=== PATIENT | female | born 1990 | race Caucasian/White ===

== ENCOUNTER 2023-01-13 09:02 | Outpatient (CLI) | payer OTHER, SELFPAY | END 2023-01-13 09:03 | disposition home or self-care (01) | LOC: NFLDREF 09:03 | PROVIDERS: Visit Provider Registered Nurse | DX: Z01.419 Encounter for gynecological examination (general) (routine) without abnormal findings (principal); Z13.6 Encounter for screening for cardiovascular disorders | CPT/HCPCS: 80061 ==

== ENCOUNTER 2023-05-07 13:37 | Outpatient (CLI) | payer OTHER, SELFPAY | END 2023-05-07 13:38 | disposition home or self-care (01) | PROVIDERS: Visit Provider Family Medicine | DX: R10.9 Unspecified abdominal pain (principal) | CPT/HCPCS: 80076; 83690; 86140 ==

== ENCOUNTER 2023-05-14 07:04 | Outpatient (CLI) | payer OTHER, SELFPAY ==
--- NOTE | 2023-05-14 07:15 | CRLHL7_ITS ---
For Patients: As a result of the Century Cures Act, medical imaging exams and procedure reports are released immediately into your electronic medical record. You may view this report before your referring provider. If you have questions, please contact your health care provider. INDICATION: ABD PAIN, HX CHOLECYSTECTOMY COMPARISON: MRI 03/05/2018 TECHNIQUE: Real time shelley scale imaging and color Doppler analysis was performed of the right upper quadrant. FINDINGS: The patient`s liver is of normal size and has uniform echogenicity. There is a normal appearance of the hepatic IVC and proximal abdominal aorta. There is no evidence of ascites. The gallbladder is absent. The common bile duct is of normal size and measures 6 mm in diameter at the level of the terese hepatis. Hypoechoic structure associated with the pancreatic head measuring 3.3 cm. There is no evidence of a stone or hydronephrosis within the right kidney. The right kidney measures 11.2 cm in length. IMPRESSION: The pancreas is similar to the prior examination. Accessory pancreatic tissue is unchanged. There is no suspicious pancreatic lesion. Absent gallbladder. No biliary obstruction. Overall, the examination is normal. Dictated by Graham Mendoza MD @ 05/14/2023 11:34:27 AM (Electronically Signed)
== END 2023-05-14 07:05 | disposition home or self-care (01) ==
PROVIDERS: Visit Provider Family Medicine
DX: R10.9 Unspecified abdominal pain (principal)
CPT/HCPCS: 76705

== ENCOUNTER 2023-12-14 15:50 | Outpatient (CLI) | payer OTHER, SELFPAY ==
[2023-12-14 23:05] LABS: Chlamydia DNA Amplified* NOT DETECTED (No Detected); GC DNA Amplified* NOT DETECTED (No Detected)
== END 2023-12-14 15:51 | disposition home or self-care (01) ==
PROVIDERS: Visit Provider Registered Nurse
DX: Z34.91 Encounter for supervision of normal pregnancy, unspecified, first trimester (principal); Z3A.09 9 weeks gestation of pregnancy
CPT/HCPCS: 76817; 82565; 82570; 84156; 84450; 84460; 84520; 86592; 86703; 86704; 86706; 86762; 86787; 86803; 86850; 86900; 86901; 87086; 87340; 87491; 87591

== ENCOUNTER 2023-12-24 10:29 | Outpatient (CLI) | payer OTHER, SELFPAY | END 2023-12-24 10:30 | disposition home or self-care (01) | LOC: NFLDREF 12-27 15:39 | PROVIDERS: Visit Provider Registered Nurse | DX: Z34.90 Encounter for supervision of normal pregnancy, unspecified, unspecified trimester (principal) | CPT/HCPCS: 82570; 84156 ==

== ENCOUNTER 2024-01-03 08:37 | Outpatient (CLI) | payer OTHER, SELFPAY | END 2024-01-03 08:38 | disposition home or self-care (01) | LOC: NFLDREF 01-04 11:45 | PROVIDERS: Visit Provider Obstetrics & Gynecology | DX: Z87.59 Personal history of other complications of pregnancy, childbirth and the puerperium (principal); O09.521 Supervision of elderly multigravida, first trimester | CPT/HCPCS: 84450; 84460 ==

== ENCOUNTER 2024-02-16 07:52 | Outpatient (CLI) | payer OTHER, SELFPAY | END 2024-02-16 07:53 | disposition home or self-care (01) | LOC: US 07:52 | PROVIDERS: Visit Provider Obstetrics & Gynecology | DX: O09.522 Supervision of elderly multigravida, second trimester (principal); Z3A.18 18 weeks gestation of pregnancy | CPT/HCPCS: 76811 ==

== ENCOUNTER 2024-04-19 07:10 | Outpatient (CLI) | payer OTHER, SELFPAY ==
--- NOTE | 2024-04-19 07:15 | CRLHL7_ITS ---
For Patients: As a result of the Cures Act, medical imaging exams and procedure reports are released immediately into your electronic medical record. You may view this report before your referring provider. If you have questions, please contact your health care provider. HISTORY: Gestational diabetes. growth. COMPARISON: Report of the Ob ultrasound from 12/14/2023 TECHNIQUE: Ultrasound examination of the is performed with transabdominal technique. FINDINGS: A single intrauterine gestation is seen in breech presentation with regular cardiac activity at 161 beats per minute. The placenta is posterior and is free of the cervical os. The placental grade is 1 and the amniotic fluid volume is normal. Single deepest vertical pocket: Normal at 3.5 cm. BPD: 6.4 cm 26 weeks 0 days, less than the 3rd percentile HC: 24.5 cm 26 weeks 4 days, less than the 3rd percentile AC: 23.2 cm 27 weeks 4 days, 34th percentile FL: 5.3 cm 28 weeks 0 days, 39th percentile The estimated age by ultrasound is 27 weeks 0 days, with an estimated date of delivery of 07/19/2024. This represents a slight decrease in rate of growth compared with the clinical age of 27 weeks 6 days and the previous ultrasound. The estimated date of delivery has been extended by 7 days compared to the previous ultrasound. The ultrasound ratios are normal. The estimated weight of 1100 grams is at the 26th percentile based on the clinical dates. IMPRESSION: 1. Single intrauterine gestation in breech presentation with regular cardiac activity. 2. Estimated gestational age is 27 weeks 0 days. 3. Slight decrease in rate of growth compared with the clinical age of 27 weeks 6 days and the previous ultrasound. The estimated date of delivery has been extended by 7 days compared to the previous ultrasound. 4. Estimated weight of 1100 grams is at the 26th percentile based on the clinical dates. 5. Head measurements less than the 3rd percentile. Dictated by Julio Cesar Arroyo MD @ 04/19/2024 9:45:06 AM (Electronically Signed)
== END 2024-04-19 07:11 | disposition home or self-care (01) ==
LOC: US 07:10
PROVIDERS: Visit Provider Obstetrics & Gynecology
DX: O24.419 Gestational diabetes mellitus in pregnancy, unspecified control (principal); Z3A.27 27 weeks gestation of pregnancy
CPT/HCPCS: 76816

== ENCOUNTER 2024-04-19 07:53 | Outpatient (CLI) | payer OTHER, SELFPAY | END 2024-04-19 07:54 | disposition home or self-care (01) | LOC: NFLDREF 04-22 19:58 | PROVIDERS: Visit Provider Obstetrics & Gynecology | DX: O24.419 Gestational diabetes mellitus in pregnancy, unspecified control (principal); Z3A.27 27 weeks gestation of pregnancy | CPT/HCPCS: 86592 ==

== ENCOUNTER 2024-05-17 07:17 | Outpatient (CLI) | payer OTHER, SELFPAY ==
--- NOTE | 2024-05-17 07:15 | CRLHL7_ITS ---
For Patients: As a result of the Century Cures Act, medical imaging exams and procedure reports are released immediately into your electronic medical record. You may view this report before your referring provider. If you have questions, please contact your health care provider. INDICATION: GDM COMPARISON: 04/19/2024 TECHNIQUE: Real time shelley scale imaging of the fetus was performed. FINDINGS/IMPRESSION: Sonographic imaging demonstrates a single living intrauterine gestation. Fetus demonstrates a regular cardiac rate of 154 beats per minute. Fetus has a vertex position. The placenta lies posteriorly. Amniotic fluid volume appears normal and there is a single deepest vertical pocket: 2.7 cm. The estimated weight is 1705gm which lies at the 19th %. On the prior OB ultrasound exam dated 04/19/2024 the estimated weight was at the 26th%. BPD less than 3rd percentile. HC is 4th percentile. AC 32nd percentile. FL 23rd percentile. The HC/AC ratio measures 1.03 range (0.96-1.18). Sonographic gestational age 30 weeks 5 days and sonographic due date 07/21/2024. Sonographic age is 8 days behind the clinical age. Dictated by Graham Mendoza MD @ 05/17/2024 12:15:15 PM (Electronically Signed)
== END 2024-05-17 07:18 | disposition home or self-care (01) ==
LOC: US 07:18
PROVIDERS: Visit Provider Obstetrics & Gynecology
DX: O24.419 Gestational diabetes mellitus in pregnancy, unspecified control (principal)
CPT/HCPCS: 76816

== ENCOUNTER 2024-06-14 07:18 | Outpatient (CLI) | payer OTHER, SELFPAY ==
--- NOTE | 2024-06-14 07:15 | CRLHL7_ITS ---
For Patients: As a result of the Century Cures Act, medical imaging exams and procedure reports are released immediately into your electronic medical record. You may view this report before your referring provider. If you have questions, please contact your health care provider. INDICATION: Third trimester scan, evaluate growth. COMPARISON: 05/17/2024 TECHNIQUE: Real time shelley scale imaging of the fetus was performed. FINDINGS/IMPRESSION: Sonographic imaging demonstrates a single living intrauterine gestation. Fetus demonstrates a regular cardiac rate of 148 beats per minute. Fetus has a vertex position. The placenta lies right posterior. Amniotic fluid volume appears normal and there is a single deepest vertical pocket: 3.9 cm. The estimated weight is 2516gm which lies at the 23rd %. On the prior OB ultrasound exam dated 05/17/2024 the estimated weight was at the 19th%. BPD less than 3rd percentile. HC 5th percentile. AC is 33rd percentile. FL 30th percentile. The HC/AC ratio measures 1.00 range (0.94-1.11). Sonographic gestational age 34 weeks 3 days and a sonographic due date of 07/23/2024. Sonographic age 10 days behind the clinical age. Dictated by Graham Mendoza MD @ 06/14/2024 1:21:30 PM (Electronically Signed)
== END 2024-06-14 07:19 | disposition home or self-care (01) ==
LOC: US 07:20
PROVIDERS: Visit Provider Obstetrics & Gynecology
DX: O24.419 Gestational diabetes mellitus in pregnancy, unspecified control (principal); Z3A.36 36 weeks gestation of pregnancy; Z23 Encounter for immunization
CPT/HCPCS: 76816; 87081; 87653

== ENCOUNTER 2024-07-06 06:34 | Inpatient (IN) | payer OTHER, SELFPAY ==
[2024-07-06] VITALS (25 sets, daily range): BP systolic 111–135; BP diastolic 64–80; PULSE 60–91; RESP 14–16; TEMP 36.6–36.7; O2SAT 71–100; BMI 27.3
[2024-07-06 07:57] LABS: Basophils Absolute Auto 0.02 K/uL (0.00-0.30); Basophils Percent Auto 0.4 % (0.0-3.0); Eosinophils Absolute Auto 0.07 K/uL (0.00-0.50); Eosinophils Percent Auto 1.3 % (0.0-7.0); Hematocrit 36.4 % (33.0-51.0); Hemoglobin* 12.1 gm/dL (12.0-16.0); Immature Granulocytes Abs Auto 0.02 K/uL (0.00-0.30); Immature Granulocytes Pct Auto 0.4 %; Lymphocytes Percent Auto 17.8 % (20-44); Mean Corpuscular HGB Conc 33 gm/dL (32-36); Mean Corpuscular Hemoglobin 30 pg (26-34); Mean Corpuscular Volume 90 fL (80-100); Neutrophils Absolute Auto 3.79 K/uL (1.7-7.0); Neutrophils Percent Auto 71.1 % (42.0-72.0); Platelet Count* 146 K/uL (140-440); Red Blood Count 4.03 m/uL (4.00-5.20); White Blood Count* 5.33 K/uL (4.50-11.00)
[2024-07-06 07:59] LABS: Slide Review Reflex No
[2024-07-06] MEDS: LACTATED RINGERS 1000 ML 1,000 ML 124 ML IV (08:03)
[2024-07-06] MEDS: OXYTOCIN 30 unit/500 ML in NS 30 UNIT/500 ML BAG IVPB (08:04)
--- NOTE | 2024-07-06 08:14 | W.PM.LDBA ---
Subjective History of Present Illness Date Seen: 07/06/24 Narrative: Patient is being admitted to Labor and Delivery for IOL. She is a 33 year old at 39 0/7 weeks gestation. Her full history and physical was dictated by Dr. Langley on 06/23/24. Please see this for details. Specific Issues/Plans G 4 P 2011 Spouse: Santiago. Daughters: Christiano Mathews, Jacinta Strniger. Baby: Girl! Jeri Mao H&P by [facility] on 06/23/2024 # AMA Genetic screening: Normal MaterniT-21 test. Level 2 US: 02/16/2024, no anomalies. Recommendations: Growth ultrasounds q4 weeks starting at 28 weeks gestation secondary to GDM (see below). Growth US w head measurements less than 3rd percentile and patient desired FU with MFM; results normal as summarized below. # history of preeclampsia with 1st . Baseline preeclampsia labs: BUN, Creatinine normal. AST slightly elevated at 38*. Repeated on 01/03/24: 23 ALT normal at 24. P/C 0.07 24 hour urine: Total protein: 104, P/C 0.09 Recommend daily baby aspirin starting at 12 weeks. # GDMA1 in this and her previous 2. Hemoglobin A1c: 4.9% Recommend early Glucola testin weeks: 178. Prefers to check BS QID than to do 3-h GTT. 02/15: MFM visit. recommend q4 week growth starting at 28 weeks: ultrasounds ordered on 02/29/24. # youngest child with autism and developmental delay. Reviewed limitation NIPT test. She is aware that this does not evaluate for autism. Did [id number]: no increased risk for aneuploidy, Female. # precipitous . Patient states she arrived to the hospital 20 minutes before delivery of her last child. Prefers elective IOL at 39 weeks # Indeterminate Hep B surface antibody. Negative Hep B antigen. No active Hep B infection. Uncertain immunity. If high risk for Hep B, can consider vaccination during . # varicella nonimmune. Recommend vaccination. # Umbilical hernia Imagin05/17/2024: Vertex, single deepest pocket of amniotic fluid 2.7 cm, BPD: Less than the 3rd percentile, HC: 3.5 percentile, AC: 32 percentile, FL: 23rd percentile. EFW: 1705 g, 19th percentile. 05/26/2024: MFM level 2: EFW 16%, AC 18%, normal visualized anatomy. HC is not in a range concerning for microcephaly and the intracranial anatomy appears within normal limits. 06/14/24: cephalic, SDP 3.9, EFW 22.6%, AC 32.7%, BPD <3%, HC 4.6%, FL 29.7%. Immunizations: Covid: Completed, not up-to-date with booster. Completing w/ her family Tdap: 05/29/2024 RSV: 06/14/24 Flu: next visit - Completing with her family OB - Problem Based A/P Additional Plan (1) Gestational diabetes mellitus: Status: Acute Plan: normal sugar at admit . Check postprandially until active labor Delivery/Labor/Induction Plan Induction method: per pitocin protocol OB Exam Physical Exam Narrative: Physical exam: General: No acute distress Psych: Alert and oriented x3, full affect HEENT: Normocephalic, atraumatic Neck: No cervical adenopathy, no thyromegaly Heart: Regular rate and rhythm, no murmur rub or gallop Lungs: Clear to auscultation bilaterally Abdomen: Soft, nontender, gravid, cephalic lie Skin: No lesions or rashes Lower extremities: No edema or erythema Pelvic exam: 2 cm/70 %/-1/soft consistency/mid position on 06/30 tracing: Baseline 140 / accelerations present / no decelerations / moderate variability.
--- NOTE | 2024-07-06 10:43 | PM.OBPNL ---
Subjective Date Seen: 07/06/24 Narrative: Poonam is a 33 yo woman at 39 0/7 weeks' gestation here for IOL for history of rapid labors in the setting of GDMA1. She is on Pitocin for augmentation of labor. She is feeling some contractions. Objective Exam: Gen - NAD Sterile vaginal exam - 3 80 / 0 / posterior / soft AROM for clear fluid Vital Signs: Last Vital Signs Temp 97.9 F 07/06/24 09:10 Pulse 70 07/06/24 10:00 Resp 16 07/06/24 09:10 BP 114/64 07/06/24 10:00 Pulse Ox 99 07/06/24 09:10 Comments: tracing: Baseline 140 / accelerations present / no deceleration / moderate variability. Contrations Q3-4 minutes Assessment Assessment: early labor Amniotic Membrane Status: AROM Status: Category l Tracing Comments: Category I GBS negative Labor Progress: Favorable cervix, early labor Maternal Status: Reassuring. Last blood sugar normal Plan Plan: Continue Pitocin augmentation.
[2024-07-06] MEDS: LIDOCAINE 2% (PF) 5 ML VIAL EPIDURAL (11:48)
[2024-07-06] MEDS: LIDOCAINE 1 % PF 30 ML INJECTION (12:01)
--- NOTE | 2024-07-06 12:03 | PM.ANBPRC ---
[facility] Medical History (Updated 07/06/24 @ 08:20 by Adelaide Hawk MD) History of gestational diabetes ?Z86.32 - Personal history of gestational diabetes (ICD-10) Hypercholesteremia ?E78.00 - Pure hypercholesterolemia, unspecified (ICD-10) Precipitate labor, with delivery ?O62.3 - Precipitate labor (ICD-10) Normal spontaneous vaginal delivery ?O80 - Encounter for full-term uncomplicated delivery (ICD-10) Pre-eclampsia affecting childbirth ?O14.94 - Unspecified pre-eclampsia, complicating childbirth (ICD-10) Meibomianitis ?H00.029 - Hordeolum internum unspecified eye, unspecified eyelid (ICD-10) History of migraine with aura ?Z86.69 - Personal history of other diseases of the nervous system and sense organs (ICD-10) History of concussion ?Z87.820 - Personal history of traumatic brain injury (ICD-10) Calculus of gallbladder with biliary obstruction but without cholecystitis (03/04/18) ?K80.21 - Calculus of gallbladder without cholecystitis with obstruction (ICD-10) Surgical History Status post laparoscopic cholecystectomy (~03/2018) ?Z90.49 - Acquired absence of other specified parts of digestive tract (ICD-10) Family History Paternal Grandfather Alzheimers disease Aunt Breast cancer Pancreatic cancer Diabetes FH: mental illness Family/Other Hypercholesterolemia Skin cancer Stroke Diabetes Breast cancer Father Diabetes Skin cancer Mother Hypercholesterolemia Stroke High blood pressure High cholesterol Paternal Grandmother Breast cancer Grandfather Bleeding disorder Other Heart disease Social History Narrative: nonsmoker What is your current living situation?: I presently have a place to live Problems where you live: no known problems In the past 12 months, utilities in danger of being shut off: no In past 12 months, lack of transportation kept you from medical appts, meetings, work, or getting things needed for daily living: no In the past 12 mos, have been you worried that your food would run out before you had money to buy more?: never true In the past 12 mos, the food you bought just didn't last and you didn't have money to buy more?: never true Smoking Status: Never smoker How often does anyone, including family, friends and others, physically hurt you: never How often does anyone, including family, friends and others, insult or talk down to you: never How often does anyone, including family, friends and others, threaten you with harm: never How often does anyone, including family, friends and others, scream or curse at you: never Meds Home Medications and Allergies Home Medications ?Medication ?Instructions ?Recorded ?Confirmed ?Type docosahexaenoic acid 200 mg mg PO 01/13/23 06/30/24 History capsule ( DHA) aspirin 81 mg capsule 81 mg PO QDAY 02/01/24 07/06/24 History Allergies Allergy/AdvReac Type Severity Reaction Status Date / Time No Known Drug Allergies Allergy Verified 07/06/24 06:52 Results Labs Labs: Laboratory Results - last 24 hr 07/06/24 07:45 WBC 5.33 RBC 4.03 Hgb 12.1 Hct 36.4 MCV 90 MCH 30 MCHC 33 RDW Coeff of Samy 13.0 Plt Count 146 Neut % (Auto) 71.1 Lymph % (Auto) 17.8 L [place] % (Auto) 9.0 Eos % (Auto) 1.3 Baso % (Auto) 0.4 Neut # (Auto) 3.79 Lymph # (Auto) 0.90 [place] # (Auto) 0.50 Eos # (Auto) 0.07 Baso # (Auto) 0.02 Abs Immat Gran (auto) 0.02 Imm/Tot Granulo (auto) 0.4 Blood Type A Positive Antibody Screen NEGATIVE Vital Signs Vital Signs: Last Vital Signs Temp 97.9 F 07/06/24 09:10 Pulse 68 07/06/24 11:59 Resp 16 07/06/24 09:10 BP 135/65 07/06/24 11:59 Pulse Ox 100 07/06/24 11:43 Weight: 83.915 kg Height: 175.26 cm Anesthesia Procedures Epidural Insertion Patient Location: OB Start Time: 11:20 Stop Time: 12:20 Start Date: 07/06/24 Stop Date: 07/06/24 Reason for Block: procedure for pain Patient Position: sitting Performed By: Aida Dominguez Preanesthetic Checklist: IV checked, risks and benefits discussed, monitors and equipment checked, pre-op evaluation, timeout performed and anesthesia consent Prep: chlorhexidine gluconate Monitoring: blood pressure monitoring, continuous pulse oximetry and heart rate Approach: midline Vertebral Space: lumbar (1-5) Epidural Technique: LYUBOV saline Needle Type: Tuohy needle Injection Technique: continuous catheter Needle gauge: 17 Needle Length (cm): 10 cm Needle Insertion Depth (cm): 5 Catheter Gauge: 19 Catheter Type: multi-orifice Catheter at skin depth (cm): 12 Test Dose Result: negative and lidocaine 1.5% with epinephrine 1 to 200,000
--- NOTE | 2024-07-06 12:34 | W.PM.VAGDEL1 ---
Procedure Procedure Done: [facility] Procedure Details: The patient is a 33 year-old G 4 P 2-0-1-2 woman admitted on 07/06/2024 at 39 Weeks, 0 Days gestation for elective induction of labor.? Cervical exam on admission was 3 cm/80 % effaced/0 station with membranes intact in cephalic presentation.? She was not iraj regularly at time of admission. heart rate demonstrated baseline 140 bpm with moderate variability, positive accelerations, no decelerations; a category 1 tracing.? AROM occurred at 10:41 a.m. with clear fluid. ? Labor Analgesia:? Epidural; this was placed immediately before , and she received only a small dose of lidocaine ? Pitocin:? Yes, for induction/augmentation ? Labor onset:? 11:00 a.m. ? Complete:? 11:45 a.m. ? Pushing:? 11:50 a.m. ? heart tones during second stage were reassuring. ? At 11:53 a.m. a viable female infant delivered in vertex LESTER presentation over small second-degree perineal laceration via spontaneous vaginal delivery.? was placed on maternal abdomen.? Cord was clamped and cut after an approximately 60 second delay;; the cord had ceased to pulse by that point.? Nose and mouth were bulb suctioned.? Infant weight pending.? 9 at 1 minute and 9 at 5 minutes.? Shoulder dystocia: No.? Nuchal cord: No, but nuchal arm was noted. ? Placenta delivered spontaneously and complete at 11:56 a.m. with a 3 vessel cord. ? Mother and were stable after delivery. ? Lacerations:? Small second-degree perineal, repaired with 2-0 Vicryl in the usual fashion after infiltration with small amount of 1% lidocaine. ? Blood loss: 300 mL. Blood loss measurement type: QBL ? Sponge and needles counts are correct.
[2024-07-06] MEDS: ACETAMINOPHEN 500 MG TABLET 1000 MG PO (16:44)
[2024-07-06] MEDS: IBUPROFEN 600 MG TABLET PO (20:43)
[2024-07-07] MEDS: LANOLIN CREAM 1 APPLIC TOPICAL (00:18)
[2024-07-07] MEDS: ACETAMINOPHEN 500 MG TABLET 1000 MG PO ×2 (00:18→15:54)
[2024-07-07 00:27] VITALS: BP 114/79; PULSE 65; RESP 16; TEMP 36.7; O2SAT 96
[2024-07-07] MEDS: IBUPROFEN 600 MG TABLET PO ×3 (03:22→20:38)
[2024-07-07 04:10] VITALS: BP 121/77; PULSE 57; RESP 16; TEMP 36.6; O2SAT 96
[2024-07-07 06:26] LABS: Hemoglobin* 10.5 gm/dL (12.0-16.0)
[2024-07-07 08:14] VITALS: BP 117/81; PULSE 63; RESP 16; TEMP 36.6; O2SAT 97
[2024-07-07] MEDS: DOCUSATE SODIUM 100 MG CAPSULE PO (08:17)
--- NOTE | 2024-07-07 11:58 | PM.ANPOST ---
Post Anesthesia Note Post Anesthesia Note Patient seen: Inpatient Respiratory Status: adequate Cardiovascular Status: adequate Mental Status: baseline Pain: adequate Temp: baseline Anesthetic awareness: N/A Complications: none Follow care: none
--- NOTE | 2024-07-07 12:24 | PM.OBPNVD1 ---
OB - PN:Subj Subjective Time Seen by Provider: 07:45 Date Seen: 07/07/24 Patient comments OB post-: no complaints, pain well controlled, perineal pain, tolerating diet and flatus present Lincoln status: and doing well [place] feeding status: exclusively OB - PN: Obj Exam Physical Exam: Vital signs: Temp Pulse Resp BP Pulse Ox O2 Del Method 97.8 F 63 16 117/81 97 Room Air 07/07/24 08:14 07/07/24 08:14 07/07/24 08:14 07/07/24 08:14 07/07/24 08:14 07/07/24 08:14 Narrative: Day 1:? Vaginal Delivery at 39 and 0/7 weeks.?Hx of GDM A1 with good control. ?? Complications:? none? Poonam feels well.? Her pain is well controlled with current medications.? She has no new complaints.? Urinary output is adequate and she is voiding without difficulty.? Has a good appetite, is tolerating a general diet, is passing flatus, and has not had a bowel movement.? Has small amount of rubra lochia.? She is ambulating well.? GENERAL APPEARANCE:? normal affect, alert, no distress? MOOD:? appropriate? CHEST:? clear to auscultation and percussion? HEART:? regular rate and rhythm? ABDOMEN:? soft, non-tender the uterine fundus is firm and is appropriate for the stage of recovery.? PERINEUM:? mild edema of the perineum, there is a 2nd degree laceration that is healing well.? EXTREMITIES:? normal and no edema? 33 year old on day 1.? 1. cares.? 2. Anticipate discharge tomorrow.? 3. 2h GTT prior to d/c tomorrow. Routine Psychiatric Exam: Psychiatric: Present normal affect and normal thought process OB - PN: Obj Data Labs Labs: Laboratory Results - last 24 hr 07/07/24 06:05 Hgb 10.5 L OB - PN: A/P Delivery Assessment and Plan (1) care and examination of lactating mother: Status: Acute (2) Gestational diabetes mellitus: Status: Acute Plan day: 1 Plan: routine care
[2024-07-07 13:07] VITALS: BP 120/81; PULSE 66; RESP 16; TEMP 36.8; O2SAT 97
[2024-07-07 21:40] VITALS: BP 108/73; PULSE 68; RESP 16; TEMP 36.6; O2SAT 96
[2024-07-08] MEDS: ACETAMINOPHEN 500 MG TABLET 1000 MG PO ×2 (00:14→06:43)
[2024-07-08 00:27] VITALS: BP 128/83; PULSE 62; RESP 16; TEMP 36.4; O2SAT 96
[2024-07-08 00:57] LABS: Rapid Plasma Reagin (RPR) Non Reactive (Non Reactive)
[2024-07-08] MEDS: IBUPROFEN 600 MG TABLET PO (03:29)
[2024-07-08 07:13] LABS: Glucose Fasting 76 mg/dl (70-95)
[2024-07-08] MEDS: DOCUSATE SODIUM 100 MG CAPSULE PO (08:02)
[2024-07-08 08:10] VITALS: BP 111/73; PULSE 78; RESP 14; TEMP 36.7; O2SAT 98
--- NOTE | 2024-07-08 08:29 | P.DS_ITS ---
DS: Providers Provider Time Seen by Provider: 08:29 Date Seen: 07/08/24 Date of admission: 07/06/24 06:34 Primary care physician: Not a Local Provider Admitting Clinician: Adelaide Hawk MD Attending Physician on discharge: Adelaide Hawk MD Exam Narrative: Exam Narrative: General: Alert and oriented, no acute distress Psych: Appropriate mood and affect Abdomen: Soft, nondistended. Fundus at 1 below umbilicus. Abdomen is nontender, no rebound or guarding. Extremities: Soft, non-tender and non-erythematous. Const: Vital Signs, click to edit/add: Vital Signs - 24 hr 07/07/24 13:07 07/07/24 21:40 07/08/24 00:27 Temperature 98.2 F 97.9 F 97.6 F Pulse Rate [Pulse Oximeter] 66 68 62 Respiratory Rate 16 16 16 Blood Pressure [Le ft Arm] 120/81 108/73 128/83 Pulse Oximetry 97 96 96 Oxygen Delivery Me thod Room Air Room Air Room Air 07/08/24 08:10 Temperature 98.1 F Pulse Rate [Pulse Oximeter] 78 Respiratory Rate 14 Blood Pressure [Le ft Arm] 111/73 Pulse Oximetry 98 Oxygen Delivery Me thod Room Air OB - DS: Summary Hospital Course Hospital Course: The patient is a 33 year old G 4 P 2 at 39 weeks gestation that was admitted to the Center on 07/06/24 for induction of labor in the setting of GDMA1, AMA, history of preeclampsia, history of precipitous . She had an uncomplicated vaginal delivery. She delivered a viable female . She is breast feeding. the patient has done well. Mike notes she is feeling well today with no acute concerns. Pain is well controlled. Lochia is minimal, no concerns. She is tolerating a p.o. intake without nausea vomiting. Ambulates without difficulty. No bowel or bladder concerns. Bonding well with baby Daylin, no feeding concerns. Completed her 2 hour GTT this morning, fasting value is normal but 2 hour results pending. No chest pain, dyspnea. [place] Infant Gender: Female Time Spent with Patient Time attestation: Total time spent providing and/or coordinating discharge services: Discharge Plan Discharge Disposition: Home, Self-Care Date of Admission: 07/06/24 06:34 Primary Care Provider: Provider,Not a Local Condition: Stable Anticipated Discharge Date/Time: 07/08/24 12:00 Discharge Medications: Continued DHA 200 mg capsule 200 mg PO DAILY aspirin 81 mg capsule 81 mg PO QDAY Discontinued oseltamivir [Tamiflu] 75 mg capsule 75 mg PO QDAY Qty: 10 0RF (DME) Blood Glucose Meter Misc See Rx Instructions .MEDSUPPLY Qty: 1 0RF Rx Instructions: As directed (DME) lancets Misc See Rx Instructions .MEDSUPPLY Qty: 100 1RF Rx Instructions: Test blood sugar 4 times daily. (DME) Test Strips Misc See Rx Instructions .MEDSUPPLY Qty: 100 1RF Rx Instructions: Test blood sugar 4 times daily. Discharge Orders: Discharge Order (Routine); Ordered 07/08/24 Ordered By: Jody Cleveland Additional Instructions: Discharge instructions were reviewed with the patient including signs and symptoms of infection and home going medications Nothing vaginally for 6 weeks: no tampons or intercourse Do not drive while taking narcotic pain medication(s) Off Work or School for 8 weeks Symptoms to report to doctor: * Bleeding that saturates more than one pad per hour * Passing clots larger than the size of a golf ball * Pain not relieved by prescribed medication * Fever above 100.4 degrees Fahrenheit * A foul vaginal odor * Difficulty in emotions, mood, and functions * Thoughts of hurting yourself and/or * Painful, reddened area in your breast * Any drainage, redness, or tenderness in your IV/epidural site * Severe headache that doesn't improve after taking medications * Changes in vision, including temporary loss of vision, blurred vision, and/or light sensitivity * Upper abdominal pain (usually under ribs on the right side) * Decrease in urination or painful, frequent urinating * Chest pain * Shortness of breath * Tenderness or pain with redness and/swelling in the calf(s) of your leg Optional 2-week visit: discuss feeding concerns, review control options and screen for anxiety/depression. 6-week visit for an annual exam. consultation services are available to all mothers and babies for the first year after delivery.? To make an appointment, please call [phone]. Follow Up Appointments: Provider,Not a Local [Primary Care Provider] - Forms: [employer] Info Instructions
[2024-07-08 09:00] LABS: Glucose 2 Hour 85 mg/dl (70-155)
== END 2024-07-08 10:45 | disposition home or self-care (01) | DRG 807 ==
PROVIDERS: Admitting Provider Obstetrics & Gynecology; Visit Provider Obstetrics & Gynecology
DX: O24.420 Gestational diabetes mellitus in childbirth, diet controlled (principal); Z37.0 Single live birth; O70.1 Second degree perineal laceration during delivery; Z87.59 Personal history of other complications of pregnancy, childbirth and the puerperium; Z3A.39 39 weeks gestation of pregnancy
CPT/HCPCS: 01967; 36415; 82947; 82950; 82962; 85018; 85025; 86592; 86850; 86900; 86901; A9270; J2003; J2371; J7120

== ENCOUNTER 2024-08-30 13:43 | Outpatient (CLI) | payer OTHER, SELFPAY ==
[2024-09-02 17:09] LABS: HPV Source Cervix; HPV, High Risk by TMA Not Detected
== END 2024-08-30 13:44 | disposition home or self-care (01) ==
PROVIDERS: Visit Provider Registered Nurse
DX: Z12.4 Encounter for screening for malignant neoplasm of cervix (principal)
CPT/HCPCS: 87624; 87625; 88141; 88142